=== PATIENT | female | born 1950 | race Caucasian/White ===

== ENCOUNTER → 2023-08-09 07:06 | Outpatient (REF) | payer OTHER, SELFPAY ==
[2023-08-09 08:50] LABS: % Basophils 1.7 % (0-2); % Immature Granulocytes 0.2 % (0-0.5); % Lymphocytes 14.9 % (20.5-51.1); % Monocytes 9.9 % (1.7-9.3); % Neutrophils 70.3 % (42.2-75.2); Absolute Basophils 0.1 10^3/uL (0-0.2); Absolute Eosinophils 0.2 10^3/uL (0-0.7); Absolute Lymphocytes 0.9 10^3/uL (1.2-3.4); Absolute Monocytes 0.6 10^3/uL (0.1-0.6); Absolute Neutrophils 4.1 10^3/uL (1.4-6.5); Hematocrit 38.5 % (37.0-47.0); Hemoglobin 12.8 g/dL (12.0-16.0); Mean Corp Hgb Conc. 33.2 g/dL (33.0-37.0); Mean Corpuscular Hgb 29.4 pg (27.0-31.0); Mean Corpuscular Volume 88.3 fL (81.0-99.0); Nucleated Red Blood Cells % 0 %; Platelet Count 429 10^3/uL (130-400); Red Blood Cell Count 4.36 10^6/uL (4.20-5.40); Red Cell Dist. Width 13.5 % (11.5-14.5); White Blood Cell Count 5.8 10^3/uL (4.8-10.8)
[2023-08-09 09:15] LABS: ALT (SGPT) 22 U/L (0-35); AST (SGOT) 30 U/L (14-36); Albumin 4.1 g/dl (3.5-5.0); Alkaline Phosphatase 67 U/L (38-126); Blood Urea Nitrogen 20 mg/dl (7-17); Calcium 9.7 mg/dl (8.4-10.2); Carbon Dioxide 26 mmol/L (22-30); Chloride 100 mmol/L (98-107); Glucose 99 mg/dl (70-99); HDL Cholesterol 90 mg/dl; LDL Cholesterol, Calculated 69 mg/dl; Potassium 4.4 mmol/L (3.5-5.1); Sodium 135 mmol/L (135-145); Total Bilirubin 0.6 mg/dl (0.2-1.3); Total Cholesterol 179 mg/dl (50-199); Total Protein 6.5 g/dl (6.3-8.2); Triglyceride 100 mg/dl (10-149); Very Low Density Lipoprotein 20 mg/dl (0-30); eGFR > 60.00
[2023-08-09 09:21] LABS: Free T4 1.33 ng/dl (0.78-2.19); Vitamin D, 25-OH*** 37.3 ng/mL (30-80)
[2023-08-09 09:34] LABS: TSH 3.25 uIU/ml (0.47-4.68)
== END ==
LOC: HWLAB 07:06
PROVIDERS: ATTENDING PHYSICIAN Internal Medicine Rheumatology; FAMILY PHYSICIAN Family Medicine
DX: M81.0 Age-related osteoporosis without current pathological fracture (principal); Z51.81 Encounter for therapeutic drug level monitoring; G47.33 Obstructive sleep apnea (adult) (pediatric); E03.9 Hypothyroidism, unspecified; Z13.220 Encounter for screening for lipoid disorders
CPT/HCPCS: 36415; 80053; 80061; 82306; 84439; 84443; 85025

== ENCOUNTER → 2024-02-06 08:11 | Outpatient (REF) | payer OTHER, SELFPAY ==
[2024-02-06 09:51] LABS: % Eosinophils 4.4 % (0-6); % Lymphocytes 17.7 % (20.5-51.1); % Monocytes 10.1 % (1.7-9.3); % Neutrophils 65.8 % (42.2-75.2); Absolute Basophils 0.1 10^3/uL (0-0.2); Absolute Eosinophils 0.2 10^3/uL (0-0.7); Absolute Lymphocytes 0.9 10^3/uL (1.2-3.4); Absolute Monocytes 0.5 10^3/uL (0.1-0.6); Absolute Neutrophils 3.3 10^3/uL (1.4-6.5); Hematocrit 37.5 % (37.0-47.0); Mean Corp Hgb Conc. 34.7 g/dL (33.0-37.0); Mean Corpuscular Hgb 30.4 pg (27.0-31.0); Mean Corpuscular Volume 87.8 fL (81.0-99.0); Mean Platelet Volume 8.9 fL (7.4-10.4); Nucleated Red Blood Cells % 0 %; Platelet Count 452 10^3/uL (130-400); Red Blood Cell Count 4.27 10^6/uL (4.20-5.40); Red Cell Dist. Width 13.8 % (11.5-14.5)
[2024-02-06 09:57] LABS: Blood Urea Nitrogen 14 mg/dl (7-17); Calcium 9.5 mg/dl (8.4-10.2); Carbon Dioxide 27 mmol/L (22-30); Chloride 100 mmol/L (98-107); Glucose 99 mg/dl (70-99); Potassium 4.5 mmol/L (3.5-5.1); Sodium 140 mmol/L (135-145); eGFR > 60.00
[2024-02-06 10:11] LABS: Vitamin D, 25-OH*** 38.7 ng/mL (30-80)
== END ==
LOC: HWLAB 08:11
PROVIDERS: ATTENDING PHYSICIAN Internal Medicine Rheumatology; FAMILY PHYSICIAN Family Medicine
DX: G56.03 Carpal tunnel syndrome, bilateral upper limbs (principal); Z13.820 Encounter for screening for osteoporosis; Z51.81 Encounter for therapeutic drug level monitoring
CPT/HCPCS: 36415; 80048; 82306; 85025

== ENCOUNTER 2024-02-27 08:50 | Outpatient (RCR) | payer OTHER, SELFPAY | END 2024-02-27 23:59 | disposition home or self-care (01) | LOC: RPT 08:50 | PROVIDERS: ATTENDING PHYSICIAN Physician Assistant Medical; FAMILY PHYSICIAN Family Medicine | DX: S76.012D Strain of muscle, fascia and tendon of left hip, subsequent encounter (principal); Z73.6 Limitation of activities due to disability; R26.89 Other abnormalities of gait and mobility; R20.0 Anesthesia of skin; Z96.642 Presence of left artificial hip joint | CPT/HCPCS: 97010; 97110; 97162 ==

== ENCOUNTER 2024-03-16 09:50 | Outpatient (RCR) | payer OTHER, SELFPAY | END 2024-03-16 23:59 | disposition home or self-care (01) | LOC: RPT 09:50 | PROVIDERS: ATTENDING PHYSICIAN Physician Assistant Medical; FAMILY PHYSICIAN Family Medicine | DX: S76.012D Strain of muscle, fascia and tendon of left hip, subsequent encounter (principal); Z73.6 Limitation of activities due to disability; R26.89 Other abnormalities of gait and mobility; R20.0 Anesthesia of skin; Z96.642 Presence of left artificial hip joint | CPT/HCPCS: 97010; 97110 ==

== ENCOUNTER → 2024-06-12 08:03 | Outpatient (REF) | payer OTHER, SELFPAY ==
[2024-06-12 10:10] LABS: % Basophils 1.7 % (0-2); % Eosinophils 3.5 % (0-6); % Immature Granulocytes 0.3 % (0-0.5); % Lymphocytes 13.2 % (20.5-51.1); % Monocytes 9.7 % (1.7-9.3); % Neutrophils 71.6 % (42.2-75.2); Absolute Basophils 0.1 10^3/uL (0-0.2); Absolute Eosinophils 0.2 10^3/uL (0-0.7); Absolute Lymphocytes 0.8 10^3/uL (1.2-3.4); Absolute Monocytes 0.6 10^3/uL (0.1-0.6); Absolute Neutrophils 4.5 10^3/uL (1.4-6.5); Hematocrit 37.5 % (37.0-47.0); Hemoglobin 12.9 g/dL (12.0-16.0); Mean Corp Hgb Conc. 34.4 g/dL (33.0-37.0); Mean Corpuscular Hgb 29.8 pg (27.0-31.0); Mean Corpuscular Volume 86.6 fL (81.0-99.0); Mean Platelet Volume 9.1 fL (7.4-10.4); Nucleated Red Blood Cells % 0 %; Platelet Count 435 10^3/uL (130-400); Red Blood Cell Count 4.33 10^6/uL (4.20-5.40); Red Cell Dist. Width 13.2 % (11.5-14.5); White Blood Cell Count 6.3 10^3/uL (4.8-10.8)
[2024-06-12 10:50] LABS: C-Reactive Protein < 5.00 mg/L (0.0-10.00)
[2024-06-12 10:53] LABS: ALT (SGPT) 21 U/L (0-35); AST (SGOT) 30 U/L (14-36); Albumin 4.2 g/dl (3.5-5.0); Alkaline Phosphatase 65 U/L (38-126); Blood Urea Nitrogen 20 mg/dl (7-17); Calcium 9.7 mg/dl (8.4-10.2); Carbon Dioxide 29 mmol/L (22-30); Chloride 97 mmol/L (98-107); Glucose 104 mg/dl (70-99); Potassium 4.2 mmol/L (3.5-5.1); Sodium 134 mmol/L (135-145); Total Bilirubin 0.9 mg/dl (0.2-1.3); Total Protein 6.7 g/dl (6.3-8.2); eGFR > 60.00
== END ==
LOC: HWLAB 08:03
PROVIDERS: ATTENDING PHYSICIAN Internal Medicine Rheumatology; FAMILY PHYSICIAN Family Medicine
DX: M81.0 Age-related osteoporosis without current pathological fracture (principal); Z51.81 Encounter for therapeutic drug level monitoring
CPT/HCPCS: 36415; 80053; 85025; 86140

== ENCOUNTER → 2024-08-14 07:44 | Outpatient (REF) | payer OTHER, SELFPAY ==
[2024-08-14 12:18] LABS: % Basophils 2.3 % (0-2); % Eosinophils 2.8 % (0-6); % Immature Granulocytes 0.2 % (0-0.5); % Lymphocytes 16.9 % (20.5-51.1); % Monocytes 12.6 % (1.7-9.3); % Neutrophils 65.2 % (42.2-75.2); Absolute Basophils 0.1 10^3/uL (0-0.2); Absolute Eosinophils 0.2 10^3/uL (0-0.7); Absolute Lymphocytes 0.9 10^3/uL (1.2-3.4); Absolute Monocytes 0.7 10^3/uL (0.1-0.6); Absolute Neutrophils 3.5 10^3/uL (1.4-6.5); Hematocrit 37.3 % (37.0-47.0); Hemoglobin 12.7 g/dL (12.0-16.0); Mean Corpuscular Hgb 29.5 pg (27.0-31.0); Mean Corpuscular Volume 86.5 fL (81.0-99.0); Nucleated Red Blood Cells % 0 %; Platelet Count 444 10^3/uL (130-400); Red Blood Cell Count 4.31 10^6/uL (4.20-5.40); Red Cell Dist. Width 13.5 % (11.5-14.5); White Blood Cell Count 5.3 10^3/uL (4.8-10.8)
[2024-08-14 14:09] LABS: ALT (SGPT) 22 U/L (0-35); AST (SGOT) 29 U/L (14-36); Albumin 4.8 g/dl (3.5-5.0); Alkaline Phosphatase 65 U/L (38-126); Blood Urea Nitrogen 19 mg/dl (7-17); Calcium 9.7 mg/dl (8.4-10.2); Carbon Dioxide 26 mmol/L (22-30); Chloride 100 mmol/L (98-107); Glucose 109 mg/dl (70-99); Potassium 4.5 mmol/L (3.5-5.1); Sodium 136 mmol/L (135-145); Total Bilirubin 0.8 mg/dl (0.2-1.3); Total Protein 7.2 g/dl (6.3-8.2); eGFR > 60.00
== END ==
LOC: HWRAD 07:44
PROVIDERS: ATTENDING PHYSICIAN Internal Medicine Rheumatology; FAMILY PHYSICIAN Family Medicine; REFERRING PHYSICIAN Physician Assistant
DX: M81.0 Age-related osteoporosis without current pathological fracture (principal); Z12.31 Encounter for screening mammogram for malignant neoplasm of breast; G56.03 Carpal tunnel syndrome, bilateral upper limbs; M19.041 Primary osteoarthritis, right hand; Z51.81 Encounter for therapeutic drug level monitoring
CPT/HCPCS: 36415; 77063; 77067; 77080; 80053; 85025

== ENCOUNTER 2024-09-08 22:28 | Inpatient (IN) | payer OTHER, SELFPAY ==
[2024-09-08 15:31] VITALS: BP 103/51; BMI 35.6
--- NOTE | 2024-09-08 15:37 | ED.GENMED ---
History of Present Illness
General
Chief Complaint: Fainting/Passed Out
Source: patient and ambulance crew
Exam Limitations: none
Time Seen by Provider: 09/08/24 15:35
Nursing documentation reviewed up to this point in time: agreed with
History of Present Illness
History of Present Illness:
74 yo female presents to the emergency department c/o syncope and diarrhea. She fell after using the bathroom. Diarrhea started today. She was recently in [place] visiting her sister. Arrives incontinent of stool.
Past History
Past History
ED Past Medical History: Asthma, Hypothyroidism and Other (Irritable bowel)
ED Past Surgical History: and Other (Gastric bypass surgery 2011)
Social History
Tobacco: Non-smoker
Alcohol: None
Drug: None
Personal:
Living: with family
Employment: Not employed
Review of Systems
Review of Systems
Allergies reviewed?: Yes
All Other Systems: Not applicable
Constitutional: Reports no symptoms
EENT: Reports no symptoms
Respiratory: Reports no symptoms
Cardiac: Reports syncope
ABD/GI: Reports diarrhea
: Reports no symptoms
Musculoskeletal: Reports no symptoms
Skin: Reports no symptoms
Neurological: Reports no symptoms
Endocrine: Reports no symptoms
Hematologic/Lymphatic: Reports no symptoms
Psychiatric: Reports no symptoms
Phy Exam
Physical Exam
Physical Exam:
Physical Exam
General: Afebrile, appears uncomfortable, pt soiled linens with diarrhea upon arrival
Neck: supple. no meningeal signs. normal posterior pharynx
Heart: s1/s2 regular rate and rhythm, no murmur. equal radial
pulses.
HEENT: Pupils equal round reactive to light, EOMI
Lungs: no acute respiratory distress. clear bilaterally
Abdomen: normal bowel sounds. not tender. no CVAT
Neuro: alert and oriented. no focal neurological deficits cranial nerves II through XII intact
Skin: no rash
Psychiatric: well kept. interactive and cooperative
Extremities: no edema. no calf tenderness. negative homans. good distal pulses
Course
Orders/Labs/Results
Orders:
Orders
09/08/24 15:35
IV Insert/Care/Rem.- Treatment PRN
Pulse Ox/cont/shift [RESP] Stat
Quantity: 1
09/08/24 15:36
Electrocardiogram (*1) Stat
Reason for Study: Other
Other Reason for Exam: chest pain
Cardiac Monitoring- Treatment ONCE
EKG- Treatment ONCE
0.9% Sodium Chloride 1000 ml [Nss] 1,000 ml IV BOLUS
09/08/24 15:49
Complete Blood Count/With Diff Urgent
Comprehensive Metabolic Panel Urgent
Magnesium Urgent
09/08/24 16:36
CT Head W/o Iv Contrast Urgent
Comment:
Reason For Exam: syncope, fall
09/08/24 19:35
0.9% Sodium Chloride 1000 ml [Nss] 1,000 ml IV BOLUS
Ondansetron Injectable [Zofran] 4 mg IV NOW STA
09/08/24 19:54
Norovirus by PCR Urgent
CINTHYA Source: Feces/Stool
Specimen Description:
Date Specimen was Collected: 09/08/24
Time Specimen was Collected: 19:52
STOOL [C difficile Antigen & Toxins] Urgent
CINTHYA Source: Feces/Stool
Specimen Description:
Date Specimen was Collected: 09/08/24
Time Specimen was Collected: 19:52
Stool Culture Urgent
CINTHYA Source: Feces/Stool
Specimen Description:
Date Specimen was Collected: 09/08/24
Time Specimen was Collected: 19:52
09/08/24 21:12
Admit/Transfer Patient As Directed
Co-Sign Provider:
Level of Care: Inpatient admission
Assign to:: Telemetry
Physician / Group: dileep dudley
Diagnosis: vomiting/diarrhea conc gastroenteritis s hep a, vasovagal syncope
Reason for Telemetry: Arrhythmia
Date to Stop Telemetry: 09/11/24
Time to Stop Telemetry: 11:00
Reason for Hospitalization: vomiting/diarrhea conc gastroenteritis s hep a, vasovagal syncope
Expected length of stay greater than two midnights?: Yes
ELOS- Estimated Length of Stay in days: 3
I certify the patient meets the requirements for IP care: Yes
Code Status As Directed
Resuscitation Status: Full Code
09/08/24 21:15
PRN Pain Medication Management As Directed
May give lesser potent ordered pain med per pt: Yes
preference::
Protocol:: Medication orders for pain may be administered in a
manner that supports deferring to patient preference
when the pt is:
- Requesting an ordered lesser potent pain medication.
Least to most potent pain medications are defined
as: acetaminophen < NSAID < tramadol < opioids
(morphine, oxycodone, hydromorphone).
- Requesting a lesser dose of the same medication IF
ORDERED.
- Requesting a less intrusive route of administration
if both routes are prescribed by the provider (PO <
IV).
09/11/24 11:00
DC Protocol for Telemetry ONCE
Abnormal Lab Results
09/08/24
15:49
WBC 12.2 H 10^3/uL
(4.8-10.8)
Hct 36.3 L %
(37.0-47.0)
Abs Immat Gran (auto) 0.1 H 10^3/uL
(0-0.05)
Absolute Neuts (auto) 11.6 H 10^3/uL
(1.4-6.5)
Absolute Lymphs (auto) 0.1 L 10^3/uL
(1.2-3.4)
Neutrophils % 95.1 H %
(42.2-75.2)
Lymphocytes % 0.6 L %
(20.5-51.1)
BUN 28 H mg/dl
(7-17)
Glucose 165 H mg/dl
(70-99)
AST 140 H U/L
(14-36)
ALT 134 H U/L
(0-35)
Total Protein 6.1 L g/dl
(6.3-8.2)
09/08/24 15:49
09/08/24 15:49
Vital Signs
Initial and Last Documented VS:
Initial Vital Signs
Pulse Resp BP Pulse Ox
93 16 103/51 96
09/08/24 15:31 09/08/24 15:31 09/08/24 15:31 09/08/24 15:31
Last Documented Vital Signs
Temp Pulse Resp BP Pulse Ox
97.6 F 90 17 114/54 96
09/08/24 15:42 09/08/24 22:15 09/08/24 22:15 09/08/24 17:00 09/08/24 15:31
MDM/Problems Addressed
Differential Diagnosis Includes:
Diarrhea, C. difficile, colitis, syncope, dysrhythmia
MDM/Problems Addressed:
74-year-old female with syncope episode, hypovolemia, diarrhea. Admit to hospitalist.
*Radiology
Radiology exam reviewed: radiology read reviewed (CT head no acute)
*Pulse Oximetry
Patient hypoxic: no
*EKG
Interpreted by ED Provider?: Yes
EKG Intrepretation Date: 09/08/24
EKG Intrepretation Time: 15:49
Interpretation: abnormal
Comparison EKG: changes noted
Heart Rate: 93
Rate: normal
Rhythm: sinus
[place]: normal axis
Interval: normal interval
QRS Pattern: right bundle branch block
Ischemia: no ischemia
*Crude Unit Operator Interpretation
Rate: normal
Interpretation: normal
Heart Rate: 90
Rhythm: sinus
*Critical Care Note
Total Time (30-74mins, 75-104mins- exclusive of procedures): Not Applicable
Data Reviewed
Further Testing Considered But Not Given:
ct a/p not indicated
Patient Management
Social determinants of health affecting care: Living situation and Strong social support
Discussion with other providers: Hospitalist
Escalation/DeEscalation of care consider admission/obs:
admit indicated
ED Attending Note
-
Portions of this chart may have been created with voice recognition software.� Occasional wrong word or��sound alike� substitutions may have occurred due to the inherent limitations of voice recognition software.
Discharge Plan
Departure
Patient Disposition: Admit
Date of Disposition: 09/08/24
Time of Disposition: 19:21
Admit to: Telemetry
Presentation/result/management discussed w/ accepting MD/DO: Hospitalist
Patient with high blood pressure during this ER visit?: No
Condition: Fair
Discharge Problem:
Syncope, Nausea vomiting and diarrhea
Prescriptions:
No Action
montelukast 10 MG tablet
10 mg PO HS
Iron
65 mg PO BID
ascorbic acid (vitamin C) 250 MG tablet
250 mg PO DAILY
Patient Comments:
gummy
loratadine 10 MG tablet
10 mg PO DAILY
levothyroxine 112 MCG tablet
112 mcg PO DAILY
Systane Ultra (PF) 1 EACH dropperette
2 drp BOTH EYES TID PRN (Reason: eye irritation)
cholecalciferol (vitamin D3) 1,000 UNITS tablet
1,000 units PO DAILY
Multivitamin
1 tab PO DAILY
meloxicam 15 mg Tablet
15 mg PO DAILY@06
omeprazole 20 mg Tablet,Delayed Release (Dr/Ec)
20 mg PO DAILY
naproxen sodium [Aleve] 220 MG tablet
440 mg PO 4-8XD PRN (Reason: pain)
Rx Instructions:
Take with food
Do not take within 2 hours of Aspirin
meclizine 25 mg tablet
25 mg PO QID PRN (Reason: dizziness, nausea) Qty: 25 0RF
Aspir-81
81 mg PO HS
Prolia
60 mg SC [id number]
Rx Instructions:
Patient reports took sometime in June is due again in November
Referrals:
Rosalva Estrada DO [Family Provider] -
Discharge Date and Time
Print Language: TAJIK
[2024-09-08] MEDS: NSS 1000 IV ×2 (15:48→19:47)
[2024-09-08 15:59] LABS: % Basophils 0.2 % (0-2); % Immature Granulocytes 0.5 % (0-0.5); % Lymphocytes 0.6 % (20.5-51.1); % Monocytes 3.6 % (1.7-9.3); % Neutrophils 95.1 % (42.2-75.2); Absolute Immature Granulocytes 0.1 10^3/uL (0-0.05); Absolute Lymphocytes 0.1 10^3/uL (1.2-3.4); Absolute Monocytes 0.4 10^3/uL (0.1-0.6); Absolute Neutrophils 11.6 10^3/uL (1.4-6.5); Hematocrit 36.3 % (37.0-47.0); Hemoglobin 12.8 g/dL (12.0-16.0); Mean Corp Hgb Conc. 35.3 g/dL (33.0-37.0); Mean Corpuscular Hgb 29.5 pg (27.0-31.0); Mean Corpuscular Volume 83.6 fL (81.0-99.0); Mean Platelet Volume 8.8 fL (7.4-10.4); Nucleated Red Blood Cells % 0 %; Platelet Count 383 10^3/uL (130-400); Red Blood Cell Count 4.34 10^6/uL (4.20-5.40); Red Cell Dist. Width 13.2 % (11.5-14.5); White Blood Cell Count 12.2 10^3/uL (4.8-10.8)
[2024-09-08 16:01] VITALS: BP 110/43
[2024-09-08 16:16] LABS: ALT (SGPT) 134 U/L (0-35); AST (SGOT) 140 U/L (14-36); Albumin 3.8 g/dl (3.5-5.0); Alkaline Phosphatase 53 U/L (38-126); Blood Urea Nitrogen 28 mg/dl (7-17); Carbon Dioxide 27 mmol/L (22-30); Chloride 99 mmol/L (98-107); Estimated Creatinine Clearance 61 ml/min; Glucose 165 mg/dl (70-99); Magnesium 1.6 mg/dl (1.6-2.3); Potassium 4.1 mmol/L (3.5-5.1); Sodium 135 mmol/L (135-145); Total Protein 6.1 g/dl (6.3-8.2); eGFR > 60.00
[2024-09-08 17:00] VITALS: BP 114/54
[2024-09-08] MEDS: ZOFRAN 4 MG IV (19:45)
--- NOTE | 2024-09-08 20:17 | HPS.HSE ---
Family Physician
-
Family Physician: Rosalva Estrada
Chief Complaint
-
Diarrhea, vasovagal syncope
History of Present Illness
74-year-old female states she woke up at 5 AM to go to the bathroom she does not recall whether she took her Synthroid or her meloxicam she then started having watery brown diarrhea and dry heaves multiple times today she reports that 1. She was
sitting on the toilet for a very long time. She then states she called for her as she had to go to the bathroom again he was helping her walk to the bathroom she was unable to hold it and started having diarrhea as she was walking she felt
like she was going to pass out so he helped her and lowered her to the floor she woke up with her head on her arm. She was also incontinent of stool on arrival in the ER. She has history of IBS, gastric bypass 2012, hypothyroidism, asthma. She
had recent trip to [place] to visit her sister 08/22 to September 01, while there she ate at [employer] on August 30 having baked ziti with chicken. She was at a choir practice 2 days ago. She is unsure if anyone from the choir is sick however her immediate
family around her including her 3-year-old grandson she watches is not sick. She has past medical history of osteoarthritis, GERD, seasonal allergies, hypothyroidism, vitamin D deficiency, iron deficiency, dry eye syndrome.
Medical History
Past Medical History
Past Medical History: Reports Other
Additional Past Medical History:
osteoarthritis
GERD
seasonal allergies,
hypothyroidism
vitamin D deficiency,
iron deficiency
dry eye syndrome.
Past Surgical History: Reports Other
Additional Past Surgical History:
Bilateral hip replacements
Cataract extraction with bilateral lens implants
Social History
Tobacco: Non-smoker
Alcohol: None
Drug: None
Personal:
Living: With Family ()
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
Family History
Family History: Not pertinent
Allergies / Home Medications
Allergies reflects when Allergies were last updated in [facility].
Home Medications with original date entered in [facility]
Allergy/Medication List:
Allergies
Allergy/AdvReac Type Severity Reaction Status Date / Time
codeine [Codeine] Allergy passed out Verified 09/08/24 15:45
seasonal Allergy sneezing Uncoded 09/08/24 15:45
Home Medications
montelukast 10 mg tablet 10 mg PO HS 08/12/10
Iron 65 mg PO BID 03/31/18
ascorbic acid (vitamin C) 250 mg tablet 250 mg PO DAILY 05/24/18
cholecalciferol (vitamin D3) 25 mcg (1,000 unit) tablet 1,000 units PO DAILY 05/24/18
levothyroxine 112 mcg tablet 112 mcg PO DAILY 05/24/18
loratadine 10 mg tablet 10 mg PO DAILY 05/24/18
peg 400-propylene glycol (PF) 0.4 %-0.3 % eye drops in a dropperette (Systane Ultra (PF)) 2 drp BOTH EYES TID PRN eye irritation 05/24/18
Multivitamin 1 tab PO DAILY 10/11/19
meclizine 25 mg tablet 25 mg PO QID PRN dizziness, nausea #25 tabs 02/17/23
meloxicam 15 mg tablet 15 mg PO DAILY@06 02/17/23
naproxen sodium 220 mg tablet (Aleve) 440 mg PO 4-8XD PRN pain 02/17/23
omeprazole 20 mg tablet,delayed release 20 mg PO DAILY 02/17/23
Aspir-81 81 mg PO HS 09/08/24
Prolia 60 mg SC [id number] 09/08/24
Review of Systems
-
History Source: Patient
A 12 point ROS was completed and negative except as noted: Yes
Constitutional: Denies Fever or Chills
EENT: Denies Sore Throat or Runny Nose
Respiratory: Denies Cough or Trouble Breathing
Cardiac: Denies Chest Pain, Palpitations or Syncope
Abdomen/GI: Reports Nausea, Vomiting (Dry heaves) and Diarrhea (Watery brown); Denies Abdominal Pain, Constipated, Bloody Stools or Black Stools
: Denies Dysuria, Frequency, Flank Pain, Incontinence, Difficulty Voiding, Urgency, Bleeding or Dark Urine
Musculoskeletal: Denies Joint Pain or Edema
Skin: Denies Itching or Rash
Neurological: Reports Other (Vasovagal syncope lowered to ground by ); Denies Dizzy or Headache
Endocrine: Reports No Symptoms
Hematologic/Lymphatic: Reports No Symptoms
Psych: Reports Calm
Physical Exam
Vital Signs
Vital Signs
Temp Pulse Resp BP Pulse Ox
97.6 F 92 22 114/54 96
09/08/24 15:42 09/08/24 19:00 09/08/24 19:00 09/08/24 17:00 09/08/24 15:31
Physical Exam
General: Comfortable and Conversant; No Pain, Fever or Chills
HEENT: NormoCephalic, Anicteric, PERRLA, [place] Conjunctivae, No Ptosis and Other (Dry oral mucosa)
Respiratory: Clear; No Wheezes or Rales
Cardiac: S1/S2 and Regular Rhythm; No Murmur, Rub, Gallop or Peripheral Edema
Breast: Deferred by me
GI: Soft, Non Tender, Non Distended, Normal Bowel Sounds and No Hepatosplenomegaly
Rectal: Deferred by Provider
Genito-urinary: Deferred by me
Musculoskeletal: No Clubbing, No Cyanosis and No Edema
Skin: Warm and Dry; No Rash
Neuro: No Motor Deficits, Nonfocal/grossly intact, Cranial Nerves Intact and No Sensory Deficits; No Slurred Speech, Facial Droop, Tremors or Sedated
Psych: Calm
Laboratory Results
-
09/08/24 15:49
09/08/24 15:49
Laboratory Results
Total Bilirubin 1.0 mg/dl (0.2-1.3) 09/08/24 15:49
AST 140 U/L (14-36) H 09/08/24 15:49
ALT 134 U/L (0-35) H 09/08/24 15:49
Alkaline Phosphatase 53 U/L (38-126) 09/08/24 15:49
Data Reviewed
-
CT Scan: Report Reviewed by me
Lab Data: Labs Reviewed by me
Impression/Plan
-
Impression/plan:
Admit to telemetry
#Syncope vasovagal post diarrhea
- Check orthostatic vitals
- IV NSS
-PT/OT/case management consult
CT head: No acute intracranial abnormality
EKG: NSR RBBB heart rate 93 bpm, QTc 519 MS
#Acute diarrhea/dry heaves likely viral gastroenteritis
- Check stool studies, C. difficile
No recent antibiotics no sick contacts
-IV NSS
- Clear liquid diet
#Prolonged QTc likely 2/2 to RBBB
QTc 519 MS
-Hold prolonging QTc agents
-Monitor on telemetry
#Acute transaminitis�unclear
AST 140, ALT 134, alk phos 53
check Hep A
#Osteoarthritis
Patient takes meloxicam 15 mg daily, vitamin D3 1000 units daily
#Hypothyroidism
Continue levothyroxine 112 mcg p.o. daily
#Seasonal allergies
-Continue loratadine 10 mg daily, Singulair 10 mg every afternoon
#GERD
Continue omeprazole 20 mg daily
#Dry eye syndrome
Continue artificial tears
#Iron deficiency
Continue iron 65 mg p.o. twice daily or equivalent
DVT prophylaxis
Subcu heparin
Full code
--- NOTE | 2024-09-08 20:48 | W.PN.UPDATE ---
Update Note
Progress Note Update
Patient seen in conjunction with MARIBEL Jarquin. This is an addendum to H&P. I agree the findings on history and physical and concur with assessment and plan listed otherwise.
Briefly, this is an 74-year-old with past medical history significant for asthma, hypothyroid, coming to the emergency department with episode of fainting. She had just recently returned from visiting her sister in [place]. She went to bed in usual
[facility] the previous evening. She reported that she woke up this morning not feeling well. She had vomiting and dry heaves and then she started having diarrhea from the morning. She can to have diarrhea throughout the day and in the
afternoon while she was initially she had diarrhea and then told her that she is going to go down and immediately came to support her and stable walking he lowered her to the floor she became unresponsive. She does not know exactly how long
what appears to be for only seconds to minutes. Son was a EMT was called who arrange for her to come to the emergency department.
Patient denies any abdominal pain. Denies any fevers or chills. She is unaware of any sick contacts. Besides being in [place] about 17 days ago and eaten out x 2 she was with a group of choir mates on . She also takes care of her
4-year-old grandson. No known sick contacts despite these contacts.
She reports 2 prior episodes of fainting wanting a similar scenario yesterday and 1 while she was at [employer]. She denies any cardiac history. She denies any seizure history.
Emergency department she was afebrile, blood pressure was 114/60 with a pulse of 96 and she was satting 98% on room air. White count was 12.2 hemoglobin and platelets were normal. Electrolytes remained normal. BUN and creatinine were stable at 28
and 0.9 with a glucose of 165. She had elevation in AST and ALT to [address] of the head was negative. Stool studies pending.
Assessment and plan
Suspect vasovagal vs orthostatic syncope in setting of acute gastroenteritis/less likely food poisoning. She is weak and slightly dehydrated. Labs within nml except mild transaminitis. Hemodynamically stable and afebrile. No recent antibiotics.
- admit to telemetry monitoring x 24 hours
- continue IV fluids
- antiemetics prn
- clear liquid diet for now
- stool culture, cdiff
- if stool studies negative for cdiff, can start immodium prn
Transaminitis - previously normal so likely acute, no medications implicated. No acute abdominal discomfort or cholestatic pattern. No etoh.
- check acute hepatitis a panel (within incubation period (15 - 50 days) for a possible travel exposure)
- trend lfts, if rising then obtain abdominal/liver imaging.
DVT PPX - lovenox sq
Code status - Full Code
[2024-09-09] VITALS (9 sets, daily range): BP systolic 95–141; BP diastolic 50–76; PULSE 72–85; O2SAT 97; BMI 35.3
[2024-09-09] MEDS: NSS 1000 IV ×2 (01:29→14:09)
[2024-09-09] MEDS: SINGULAIR 10 MG PO ×2 (01:30→21:47)
[2024-09-09] MEDS: SYNTHROID 112 MCG PO (05:36)
[2024-09-09] MEDS: MOBIC 15 MG PO (05:36)
[2024-09-09 07:34] LABS: % Basophils 0.3 % (0-2); % Eosinophils 0.1 % (0-6); % Immature Granulocytes 0.4 % (0-0.5); % Neutrophils 85.2 % (42.2-75.2); Absolute Lymphocytes 0.3 10^3/uL (1.2-3.4); Absolute Monocytes 0.8 10^3/uL (0.1-0.6); Absolute Neutrophils 6.4 10^3/uL (1.4-6.5); Hematocrit 30.5 % (37.0-47.0); Hemoglobin 10.8 g/dL (12.0-16.0); Mean Corp Hgb Conc. 35.4 g/dL (33.0-37.0); Mean Corpuscular Hgb 29.8 pg (27.0-31.0); Mean Corpuscular Volume 84.3 fL (81.0-99.0); Mean Platelet Volume 9.2 fL (7.4-10.4); Nucleated Red Blood Cells % 0 %; Platelet Count 338 10^3/uL (130-400); Red Blood Cell Count 3.62 10^6/uL (4.20-5.40); Red Cell Dist. Width 13.8 % (11.5-14.5); White Blood Cell Count 7.5 10^3/uL (4.8-10.8)
[2024-09-09 08:05] LABS: ALT (SGPT) 89 U/L (0-35); AST (SGOT) 62 U/L (14-36); Albumin 3.1 g/dl (3.5-5.0); Alkaline Phosphatase 40 U/L (38-126); Blood Urea Nitrogen 21 mg/dl (7-17); Calcium 7.6 mg/dl (8.4-10.2); Carbon Dioxide 26 mmol/L (22-30); Chloride 105 mmol/L (98-107); Estimated Creatinine Clearance 78 ml/min; Glucose 97 mg/dl (70-99); Potassium 3.4 mmol/L (3.5-5.1); Sodium 136 mmol/L (135-145); Total Bilirubin 0.3 mg/dl (0.2-1.3); Total Protein 5.1 g/dl (6.3-8.2); eGFR > 60.00
[2024-09-09] MEDS: PROTONIX 40 MG PO (10:07)
[2024-09-09] MEDS: THERAGRAN 1 TABLET PO (10:07)
[2024-09-09] MEDS: VITAMIN D3 (cholecalciferol) 25 MCG PO (10:07)
[2024-09-09] MEDS: CLARITIN 10 MG PO (10:09)
--- NOTE | 2024-09-09 10:28 | PTOTSP ---
Pt is able to get OOB and ambulate in room without need for any assistive devices. Pt reports feeling better and anticipates going home tomorrow. PT will sign off.
[2024-09-09] MEDS: FEOSOL 325 MG PO ×2 (11:24→21:47)
--- NOTE | 2024-09-09 12:12 | W.PN.HOSP.TC ---
Today's Communication/Plan
-
Monitor vital signs see plan
Continue with clears, diet advance as tolerated
Continue with fluids for now
Symptomatic treatment for norovirus
Assessment / Plan
Assessment / Plan
General: Comfortable and Conversant; No Pain, Fever or Chills
HEENT: NormoCephalic, Anicteric, PERRLA, [place] Conjunctivae, No Ptosis and Other (Dry oral mucosa)
Respiratory: Clear; No Wheezes or Rales
Cardiac: S1/S2 and Regular Rhythm; No Murmur, Rub, Gallop or Peripheral Edema
GI: Soft, Non Tender, Non Distended, Normal Bowel Sounds
Musculoskeletal:No Edema
Neuro: No Motor Deficits, Nonfocal/grossly intact
Psych: Calm
Syncope likely vasovagal post diarrhea 2/2 hypovolemia
Orthostatics negative however was checked after fluids
Continue with fluids for now
CT head: No acute intracranial abnormality
EKG: NSR RBBB heart rate 93 bpm, QTc 519 MS
#Acute diarrhea/dry heaves likely viral gastroenteritis secondary to norovirus
Positive for norovirus; symptomatic care
No recent antibiotics no sick contacts
-IV NSS
- Clear liquid diet for now and diet advance as tolerated
#Prolonged QTc likely 2/2 to RBBB
QTc 519 MS
-Hold prolonging QTc agents
-Monitor on telemetry
#Acute transaminitis�unclear
AST 140, ALT 134, alk phos 53
Slowly improving; could be secondary to norovirus
Hep A checked on admission; pending
Hypokalemia
replete
#Osteoarthritis
Patient takes meloxicam
#Hypothyroidism
levothyroxine
#Seasonal allergies
-Continue loratadine, Singulair
#GERD
Continue omeprazole
#Dry eye syndrome
Continue artificial tears
#Iron deficiency
Continue iron
DVT prophylaxis
Subcu heparin
Full code
Anticipated Discharge: 24 - 48 hours
Subjective/Interval History
-
Date of Service: September 09, 2024
Denies abdominal pain
Objective Data
-
Labs:
Laboratory Results
09/09/24
06:44
WBC 7.5
Hgb 10.8 L
Hct 30.5 L
Plt Count 338
Sodium 136
Potassium 3.4 L
Chloride 105
Carbon Dioxide 26
BUN 21 H
Creatinine 0.7
Glucose 97
Calcium 7.6 L
Total Bilirubin 0.3
AST 62 H
ALT 89 H
Alkaline Phosphatase 40
Vital Signs:
Vital Signs
Temp Pulse Resp BP Pulse Ox
98.3 F 69 20 106/55 93
09/09/24 11:31 09/09/24 11:31 09/09/24 11:31 09/09/24 11:31 09/09/24 11:31
--- NOTE | 2024-09-09 13:05 | CM ---
Initial assessment completed with pt at bedside.
Pt is admitted with norovirus.
At baseline, pt lives with her in a 1 level home with 2 steps to enter.
pt is indep. at baseline w/o assistive device and drives
Pt does have equipment; RW, cane, shower chair, and commode
Pt has no hx of VN/SNF
PCP; Rosalva Estrada
Pharm; [facility] for immediate needs/[facility] for ongoing
PLAN; Anticipate dc with no needs.
[2024-09-09] MEDS: KCL 20 MEQ PO (14:09)
[2024-09-09] MEDS: NSS IV (21:50)
[2024-09-10 03:00] VITALS: BP 127/64
[2024-09-10 05:46] LABS: % Basophils 1.1 % (0-2); % Eosinophils 2.7 % (0-6); % Immature Granulocytes 0.9 % (0-0.5); % Lymphocytes 17.7 % (20.5-51.1); % Monocytes 19.2 % (1.7-9.3); % Neutrophils 58.4 % (42.2-75.2); Absolute Basophils 0.1 10^3/uL (0-0.2); Absolute Eosinophils 0.1 10^3/uL (0-0.7); Absolute Lymphocytes 0.8 10^3/uL (1.2-3.4); Absolute Monocytes 0.9 10^3/uL (0.1-0.6); Absolute Neutrophils 2.6 10^3/uL (1.4-6.5); Hemoglobin 10.8 g/dL (12.0-16.0); Mean Corp Hgb Conc. 34.8 g/dL (33.0-37.0); Mean Corpuscular Hgb 29.5 pg (27.0-31.0); Mean Corpuscular Volume 84.7 fL (81.0-99.0); Mean Platelet Volume 8.8 fL (7.4-10.4); Nucleated Red Blood Cells % 0 %; Platelet Count 294 10^3/uL (130-400); Red Blood Cell Count 3.66 10^6/uL (4.20-5.40); Red Cell Dist. Width 13.9 % (11.5-14.5); White Blood Cell Count 4.5 10^3/uL (4.8-10.8)
[2024-09-10] MEDS: SYNTHROID 112 MCG PO (06:03)
[2024-09-10] MEDS: MOBIC 15 MG PO (06:03)
[2024-09-10 06:51] LABS: ALT (SGPT) 69 U/L (0-35); AST (SGOT) 47 U/L (14-36); Albumin 3.2 g/dl (3.5-5.0); Alkaline Phosphatase 44 U/L (38-126); Blood Urea Nitrogen 10 mg/dl (7-17); Calcium 7.5 mg/dl (8.4-10.2); Carbon Dioxide 25 mmol/L (22-30); Chloride 106 mmol/L (98-107); Estimated Creatinine Clearance 91 ml/min; Glucose 88 mg/dl (70-99); Potassium 3.5 mmol/L (3.5-5.1); Sodium 137 mmol/L (135-145); Total Bilirubin 0.4 mg/dl (0.2-1.3); Total Protein 5.4 g/dl (6.3-8.2); eGFR > 60.00
[2024-09-10 07:15] VITALS: BP 118/65
[2024-09-10] MEDS: NSS 1000 IV (07:40)
[2024-09-10] MEDS: PROTONIX 40 MG PO (08:24)
[2024-09-10] MEDS: CLARITIN 10 MG PO (08:24)
[2024-09-10] MEDS: FEOSOL 325 MG PO (08:24)
[2024-09-10] MEDS: VITAMIN D3 (cholecalciferol) 25 MCG PO (08:24)
[2024-09-10] MEDS: THERAGRAN 1 TABLET PO (08:24)
[2024-09-10 11:35] VITALS: BP 116/69
[2024-09-10 12:36] LABS: Hepatitis A Antibody, Total Negative (Negative)
--- NOTE | 2024-09-10 14:07 | W.PN.HOSP.TC ---
Addendum entered and electronically signed by Jayden Roa MD 09/15/24 16:51:
Norovirus Only, Without Systemic Illness
Original Note:
Today's Communication/Plan
-
DC
Assessment / Plan
Assessment / Plan
Syncope likely vasovagal post diarrhea 2/2 hypovolemia
Patient without dizziness.
CT head: No acute intracranial abnormality
EKG: NSR RBBB heart rate 93 bpm, QTc 519 MS
#Acute diarrhea/dry heaves likely viral gastroenteritis secondary to norovirus
Positive for norovirus; symptomatic care
no sick contacts
- No nausea or emesis. Not much appetite but tolerating clear liquids. Advance diet to low residue diet and if she tolerates DC home.
#Prolonged QTc likely 2/2 to RBBB
QTc 519 MS
-Hold prolonging QTc agents
- No Ventricular arrhythmia on tele
- Repeat EKG
#Acute transaminitis�unclear
AST 140, ALT 134, alk phos 53
Slowly improving; could be secondary to norovirus
Hep A checked on admission NEG
Hypokalemia
repleteD
#Osteoarthritis
Patient takes meloxicam
#Hypothyroidism
levothyroxine
#Seasonal allergies
-Continue loratadine, Singulair
#GERD
Continue omeprazole
#Dry eye syndrome
Continue artificial tears
#Iron deficiency
Continue iron
DVT prophylaxis
Subcu heparin
Full code
If she tolerates diet and QTc is okay will discharge patient home today.
Anticipated Discharge: Today
Subjective/Interval History
-
Date of Service: September 10, 2024
No further nausea. Not much appetite. No emesis. No abdominal pain. Some loose stools. No fever or chills. Denies shortness of breath or chest pain.
She was visiting family in [place] last week. No contact with sick people with diarrhea
Objective Data
-
Labs:
Laboratory Results
09/10/24
05:28
WBC 4.5 L
Hgb 10.8 L
Hct 31.0 L
Plt Count 294
Sodium 137
Potassium 3.5
Chloride 106
Carbon Dioxide 25
BUN 10
Creatinine 0.6
Glucose 88
Calcium 7.5 L
Total Bilirubin 0.4
AST 47 H
ALT 69 H
Alkaline Phosphatase 44
Vital Signs:
Vital Signs
Temp Pulse Resp BP Pulse Ox
98.3 F 66 18 116/69 97
09/10/24 11:35 09/10/24 11:35 09/10/24 11:35 09/10/24 11:35 09/10/24 11:44
I&O
09/09/24 09/10/24 09/11/24
06:59 06:59 06:59
Intake Total 1530 / 1530
Balance 1530 / 1530
Review of Systems
-
Constitutional: Denies Fever
EENT: Denies Sore Throat
Respiratory: Denies Cough or Trouble Breathing
Cardiac: Denies Chest Pain
Neuro: Denies Dizzy
Physical Exam
-
General: No Apparent Distress
Respiratory: Non Labored Respirations; Negative Accessory Resp Muscle Use
Cardiac: Regular Rhythm and S1/S2
GI: Soft, Nontender, Nondistended and Normal Bowel Sounds
Neuro: AO x 3
Data Reviewed
-
Labs: Labs Reviewed by me
--- NOTE | 2024-09-10 14:14 | PN.CDI ---
CDI
- -
CDI:
Physician Documentation Request
Admit Date: 09/08/24 22:28
Dear Doctor Crispin,
Clinical Indicators:
Patient admitted with acute diarrhea & syncopal episode.
Stool specimen:
09/08/24 19:54 C. difficile GDH Antigen & Toxins - Final
Feces/Stool - Final
Positive for Norovirus GII
WBC on admission:
09/08/24
15:49
WBC 12.2 H
HR trend on admission:
09/08/24
15:31 09/08/24
16:01 09/08/24
18:12
Pulse 93 92 99
09/08/24
19:00 09/08/24
20:00 09/08/24
21:00
Pulse 92 93 92
Please clarify which of the following most accurately describes the status of the patient's infection:
Sepsis, POA
- Systemic manifestations of infection, with 2 or more SIRS criteria which include:
- Fever >100.9 degrees F or hypothermia < 96.8 degrees F
- Leukocytosis - WBC > 12,000 or leukopenia - WBC < 4,000 or > 10% bands
- Tachycardia > 90 beats per minute
- Tachypnea - RR > 20 breaths per minute or PaCO2 , 32mmHg
Source: Merck Manual 2013
Norovirus Only, Without Systemic Illness
Other, please specify
Use of terms such as suspected, likely, concern for, or probable (associated with a specific diagnosis that is being evaluated, monitored, or treated as if it exists) are acceptable and can be coded in the inpatient setting, when documented at the
time of discharge.
Thank you,
TOM Bentley RN
CDI Specialist
available via tiger text
Please use your independent medical judgment in providing your response.
[2024-09-10 15:15] VITALS: BP 139/77
[2024-09-10] MEDS: PREVNAR 20 0.5 ML IM (17:06)
--- NOTE | 2024-09-10 17:06 | CM ---
Pt cleared for discharge to home. No identified needs.
Plan: Discharge to home; will provide transport home.
--- NOTE | 2024-09-11 07:50 | W.DCSUMMARY ---
Addendum entered and electronically signed by Jayden Roa MD 09/11/24 08:15:
Correction
date of discharge-09/10/2024
Original Note:
Discharge Summary
Discharge Data
Date of Admission: 09/08/24
Date of Discharge: 09/11/24
-
Pending Results: No
Hospital Course
Primary diagnosis:
Acute diarrheal illness secondary to norovirus infection
Syncope suspected vasovagal versus hypovolemia related
Prolonged QTc
Right bundle branch block
Acute transaminitis
Hypokalemia
Secondary diagnosis:
Osteoarthritis
Hypothyroidism
Gastroesophageal reflux disease
Dry eye syndrome
Hospital course:
Patient presented with acute diarrheal illness and syncope and was diagnosed to have acute norovirus infection which was self-limiting. She had a recent travel to [place] to visit family. No contact with diarrheal cases is unsure where she picked up
norovirus. She is at home with her .
She was tolerating a diet prior to discharge.
She was on telemetry without any events. [place] syncope was may be vasovagal or hypovolemia related. She had a lot of nausea and some emesis along with diarrhea.
Her EKG showed a QTc of 519 but now she has a complete right bundle branch block compared to prior EKGs which showed incomplete right bundle branch block. The QTc prolongation could be secondary to right bundle branch block itself. Hypokalemic
which was replaced and repeat EKG showed QTc at 492 but still with right bundle branch block. She is not on any QTc prolonging medication. She was advised negative follow-up EKG.
There was also transaminitis with AST of 140 which improved to 47 and ALT of 134 which improved to 69. She had no abdominal pain or tenderness. Suspect may be reactive to acute infection. Advised to follow-up LFTs in a week.
Discharge Plan
-
Patient Disposition: Home (Routine Discharge)
Discharge Diagnosis/Procedures: Acute enteritis secondary to norovirus
Diet: Low Residue
Additional Diets: Low residue diet for a week and resume your regular diet
Activity: As tolerated
Driving Restrictions: As prior to admission
Blood Work: CMP blood work in a week-arrange through PCP
Others Tests: EKG in 1 week-arrange through PCP to follow on QTc
Referrals:
Rosalva Estrada, DO [Family Provider] - in less than 1 week
Prescriptions:
Continued
montelukast 10 MG tablet
10 mg PO HS
Iron
65 mg PO BID
ascorbic acid (vitamin C) 250 MG tablet
250 mg PO DAILY
Patient Comments:
gummy
loratadine 10 MG tablet
10 mg PO DAILY
levothyroxine 112 MCG tablet
112 mcg PO DAILY
Systane Ultra (PF) 1 EACH dropperette
2 drp BOTH EYES TID PRN (Reason: eye irritation)
cholecalciferol (vitamin D3) 1,000 UNITS tablet
1,000 units PO DAILY
Multivitamin
1 tab PO DAILY
meloxicam 15 mg Tablet
15 mg PO DAILY@06
omeprazole 20 mg Tablet,Delayed Release (Dr/Ec)
20 mg PO DAILY
naproxen sodium [Aleve] 220 MG tablet
440 mg PO 4-8XD PRN (Reason: pain)
Rx Instructions:
Take with food
Do not take within 2 hours of Aspirin
meclizine 25 mg tablet
25 mg PO QID PRN (Reason: dizziness, nausea) Qty: 25 0RF
Aspir-81
81 mg PO HS
Prolia
60 mg SC [id number]
Rx Instructions:
Patient reports took sometime in June is due again in November
Discharge Orders:
Discharge Patient (As Directed); Ordered 09/10/24
Ordered By: Jayden Roa
Discharge Date and Time
Discharge Date/Time: 09/10/24 18:01
Print Language: SWEDISH
== END 2024-09-10 18:01 | disposition home or self-care (01) | DRG 392 ==
LOC: 3 WEST ACU 22:28
PROVIDERS: Clinical Nurse Specialist Family Health; ADMITTING PHYSICIAN Internal Medicine; ATTENDING PHYSICIAN Internal Medicine; EMERGENCY PHYSICIAN Emergency Medicine; FAMILY PHYSICIAN Family Medicine
DX: A08.11 Acute gastroenteropathy due to Norwalk agent (principal); E03.9 Hypothyroidism, unspecified; J45.909 Unspecified asthma, uncomplicated; E55.9 Vitamin D deficiency, unspecified; E61.1 Iron deficiency; E86.0 Dehydration; E87.6 Hypokalemia; K21.9 Gastro-esophageal reflux disease without esophagitis; I45.10 Unspecified right bundle-branch block; H04.129 Dry eye syndrome of unspecified lacrimal gland; R55 Syncope and collapse; R74.01 Elevation of levels of liver transaminase levels; Z96.1 Presence of intraocular lens; Z96.643 Presence of artificial hip joint, bilateral; Z98.84 Bariatric surgery status; Z79.899 Other long term (current) drug therapy; Z79.890 Hormone replacement therapy; Z79.82 Long term (current) use of aspirin; Z88.5 Allergy status to narcotic agent
CPT/HCPCS: 70450; 80053; 83735; 85025; 86708; 87045; 87046; 87324; 87427; 87449; 87798; 90677; 93005; 94760; 96361; 96374; 97161; 99285; G0009

== ENCOUNTER → 2024-09-25 08:33 | Outpatient (REF) | payer OTHER, SELFPAY ==
[2024-09-25 12:22] LABS: % Basophils 2.6 % (0-2); % Eosinophils 4.8 % (0-6); % Immature Granulocytes 0.2 % (0-0.5); % Lymphocytes 17.6 % (20.5-51.1); % Monocytes 15.4 % (1.7-9.3); % Neutrophils 59.4 % (42.2-75.2); Absolute Basophils 0.1 10^3/uL (0-0.2); Absolute Eosinophils 0.2 10^3/uL (0-0.7); Absolute Lymphocytes 0.9 10^3/uL (1.2-3.4); Absolute Monocytes 0.8 10^3/uL (0.1-0.6); Absolute Neutrophils 2.9 10^3/uL (1.4-6.5); Hematocrit 36.9 % (37.0-47.0); Hemoglobin 12.4 g/dL (12.0-16.0); Mean Corp Hgb Conc. 33.6 g/dL (33.0-37.0); Mean Corpuscular Hgb 29.2 pg (27.0-31.0); Mean Corpuscular Volume 86.8 fL (81.0-99.0); Mean Platelet Volume 9.7 fL (7.4-10.4); Nucleated Red Blood Cells % 0 %; Platelet Count 463 10^3/uL (130-400); Red Blood Cell Count 4.25 10^6/uL (4.20-5.40); Red Cell Dist. Width 14.1 % (11.5-14.5)
[2024-09-25 12:41] LABS: ALT (SGPT) 22 U/L (0-35); AST (SGOT) 25 U/L (14-36); Albumin 4.4 g/dl (3.5-5.0); Alkaline Phosphatase 47 U/L (38-126); Blood Urea Nitrogen 18 mg/dl (7-17); Calcium 9.5 mg/dl (8.4-10.2); Carbon Dioxide 29 mmol/L (22-30); Chloride 105 mmol/L (98-107); Glucose 101 mg/dl (70-99); Potassium 4.4 mmol/L (3.5-5.1); Sodium 138 mmol/L (135-145); Total Protein 6.7 g/dl (6.3-8.2); eGFR > 60.00
== END ==
LOC: HWCARD 08:33
PROVIDERS: ATTENDING PHYSICIAN Family Medicine
DX: A08.11 Acute gastroenteropathy due to Norwalk agent (principal); E87.6 Hypokalemia; R74.01 Elevation of levels of liver transaminase levels; R94.31 Abnormal electrocardiogram [ECG] [EKG]
CPT/HCPCS: 36415; 80053; 85025; 93005